=== PATIENT | male | born 1985 | race Caucasian/White ===

== ENCOUNTER → 2018-01-25 | Outpatient (CLI) | payer OTHER | LOC: LAB 08:23 | PROVIDERS: ATTEND Internal Medicine | DX: M85.80 Other specified disorders of bone density and structure, unspecified site (principal) | CPT/HCPCS: 82340 ==

== ENCOUNTER → 2018-06-10 | Outpatient (CLI) | payer OTHER ==
--- NOTE | 2018-06-11 05:59 | RADIOLOGY IMAGING REPORT ---
FACILITY: [facility] [place] PATIENT NAME: Maciej Church : 1985 MR: [id number] V: [id number] EXAM DATE: ORDERING PHYSICIAN: GABO ARDON TECHNOLOGIST: Location: [facility] Patient: Maciej Church : 1985 Visit/Account:[id number] Date of Sevice: 06/10/2018 SOFT TISSUE HEAD NECK INDICATION: Left neck mass COMPARISON: None available. FINDINGS: Grayscale and color Doppler ultrasound of the neck. Mildly enlarged left level 1 lymph node measuring 12 x 12 x 11 mm. There are multiple additional emmett gn-appearing lymph nodes in the neck including intraparotid lymph nodes. Images including the submandibular and thyroid glands are unremarkable. IMPRESSION: 1. Mildly enlarged left level 1 lymph node measuring 12 x 12 x 11 mm. There are multiple additional b enign-appearing lymph nodes in the neck. 2. Images including the submandibular and thyroid glands are unremarkable. Report Dictated By: Chato Jerome MD at 06/11/2018 5:50 AM Report E-Signed By: Chato Jerome MD at 06/11/2018 5:54 AM WSN:[id number]
== END ==
LOC: US 02:39
PROVIDERS: ATTEND Otolaryngology
DX: R59.0 Localized enlarged lymph nodes (principal)
CPT/HCPCS: 76536